=== PATIENT | female | born 1940 | race Hispanic/Latino ===

== ENCOUNTER 2024-09-15 08:05 | Emergency (ER) | payer BC, MEDICARE ==
[~2024-09-15] VITALS: Ht 154.9 cm; Wt 70.3 kg
--- NOTE | 2024-09-15 08:22 | ERN ---
General Chief Complaint: Chest Pain Stated Complaint: CP Time Seen by MD: 08:13 Source: patient History of Present Illness Initial Comments Patient is a 83-year-old female coming in to be evaluated for chest pressure. Patient states that one week ago she had a colonoscopy performed and felt very gassy afterwards. She states he started drinking some soft drink to help her with the gassiness she states that the in his improved but not completely subsided. This morning while walking his dog she felt the pressure below for chest increased radiating upper chest. She has a history of carotid stenosis. Allergies: Coded Allergies: Influenza Virus Vaccines (Unverified Allergy, Unknown, 09/15/24) Sulfa (Sulfonamide Antibiotics) (Unverified Allergy, Unknown, 09/15/24) HIVES Tetracyclines (Unverified Allergy, Unknown, 09/15/24) HIVES aspirin (Unverified Allergy, Unknown, 09/15/24) HIVES codeine (Unverified Allergy, Unknown, 09/15/24) CHEST PAIN doxycycline (Unverified Allergy, Unknown, 09/15/24) FEVER Past Medical History Past Medical History: Cancer, Heart Disease, Hypertension Medical History Other: GI BLEED Past Surgical History: Hysterectomy Surgical History Other: COLONOSCOPY ROS Dictation CONSTITUTIONAL: No chills, no fever, no weakness, no diaphoresis, no malaise. HEAD/FACE: No signs of trauma. EENT: No eye pain, no blurred vision, no tearing, no double vision, no ear pain, no ear discharge, no nose pain, no nasal congestion, no throat pain, no throat swelling, no mouth pain. RESPIRATORY: No cough, no orthopnea, no SOB, no stridor, no wheezing. CARDIOVASCULAR: chest pain, no edema, no palpitations, no syncope. GASTROINTESTINAL/ABDOMINAL: No abdominal pain, no constipation, no diarrhea, no nausea, no vomiting. GENITOURINARY: No abnormal discharge, no dysuria, no frequent urination, no hematuria. No complaints of pain in the genitals. MUSCULOSKELETAL: No back pain, no gout, no joint pain, no joint swelling, no muscle pain, no muscle stiffness, no neck pain. INTEGUMENTARY: No change in color, no change in hair/nails, no dryness, no lesion, no lumps, no rash. NEUROLOGICAL/PSYCH: No anxiety, not depressed, no emotional problem, no headache, no numbness, no pre-existing deficit, no history of seizures, no tremors, no weakness. HEMATOLOGIC/LYMPHATIC: Not anemic, no history of blood clots, no apparent bleeding, no bruising, glands not swollen. All Systems Negative, Except as Noted. Physical Exam Physical Exam Dictation VITAL SIGNS: Reviewed. GENERAL APPEARANCE: Alert, oriented x3, no acute distress, obese. HEAD AND FACE: Non-traumatic. EYES: PERRL, pink conjunctivas, eyelid no trauma, anterior chamber clear. EARS: Pinnas intact and no signs of trauma or erythema. Ear canals clear and no discharge. TMs no erythema. NOSE: No discharge, no bleeding. OROPHARYNX: Mouth normal, teeth no caries, tongue pink. Pharynx clear, no erythema. Tonsils no exudates, no abscesses noted. Mucous membrane moist. NECK: Supple, non-tender, no thyromegaly, no masses, no JVD, no bruits. BREAST: Deferred. CHEST: No tenderness, no crepitus, no paradoxical movement, no retractions. LUNGS: Clear, well-ventilated, symmetric, no rales, no wheezing, no rhonchi, no stridor, good breath sounds bilaterally. HEART: Regular rate, regular rhythm, no murmur, no gallops. VASCULAR: No peripheral edema. ABDOMEN: Soft, positive bowel sounds, nondistended, no guarding, nontender, no rebound, no masses no hepatomegaly, no splenomegaly, no Nieves's sign, no hernias. RECTAL: Deferred. GENITAL: Deferred. NEUROLOGICAL: Normal speech, gross motor function intact, gross sensory function intact. MUSCULOSKELETAL: Neck nontender, full range of motion, back nontender, full range of motion. EXTREMITIES: Nontender, full range of motion. SKIN: Color pink, dry, no turgor, no rash, no lacerations, no abrasions, no contusions. LYMPHATICS: Deferred. Results Laboratory and Microbiology Lab and Micro Result Laboratory Tests Test 09/15/24 08:25 09/15/24 08:51 White Blood Count 7.4 K/uL (4.8-10.8) Red Blood Count 4.17 MIL/uL (4.00-5.50) Hemoglobin 12.8 g/dL (12.0-16.0) Hematocrit 38.1 % (36-48) Mean Corpuscular Volume 91.4 fL (79-99) Mean Corpuscular Hemoglobin 30.7 pg (27.0-33.0) Mean Corpuscular Hemoglobin Concent 33.6 g/dL (32.0-36.0) Red Cell Distribution Width 14.1 % (11.0-15.5) Platelet Count 252 K/uL (130-400) Mean Platelet Volume 10.2 fL (7.5-10.5) Immature Granulocyte % (Auto) 0.4 % (0-1) Neutrophils (%) (Auto) 60.4 % (40.0-77.0) Lymphocytes (%) (Auto) 26.9 % (21.0-51.0) Monocytes (%) (Auto) 8.9 % (3.0-13.0) Eosinophils (%) (Auto) 3.1 % (0.0-8.0) Basophils (%) (Auto) 0.3 % (0.0-5.0) Neutrophils # (Auto) 4.5 K/uL (1.8-7.7) Lymphocytes # (Auto) 2.0 K/uL (1.0-4.8) Monocytes # (Auto) 0.7 K/uL (0.1-1.0) Eosinophils # (Auto) 0.23 K/uL (0.00-0.70) Basophils # (Auto) 0.02 K/uL (0.00-0.20) Absolute Immature Granulocyte (auto 0.03 K/uL (0-1) Nucleated Red Blood Cells 0.0 % (0.0-0.19) Sodium Level 141 mmol/L (136-145) Potassium Level 3.5 mmol/L (3.5-5.1) Chloride Level 105 mmol/L (101-111) Carbon Dioxide Level 26 mmol/L (21-32) Blood Urea Nitrogen 20 mg/dL (7-18) H Creatinine 0.8 mg/dL (0.5-1.0) Glomerular Filtration Rate Calc 72 mL/min (>90) Random Glucose 111 mg/dL (70-105) H Total Calcium 9.4 mg/dL (8.5-10.1) Total Creatine Kinase 169 U/L (21-232) Troponin I High Sensitivity 6 ng/L (4-50) Urine Color COLORLESS (YELLOW) Urine Appearance CLEAR (CLEAR) Urine pH 6.0 (5.0-8.0) Urine Specific [place] 1.005 (1.001-1.031) Urine Protein NEGATIVE mg/dL (NEGATIVE) Urine Glucose (UA) NEGATIVE mg/dL (NEGATIVE) Urine Ketones NEGATIVE mg/dL (NEGATIVE) Urine Occult Blood NEGATIVE (NEGATIVE) Urine Nitrate NEGATIVE (NEGATIVE) Urine Bilirubin NEGATIVE mg/dL (NEGATIVE) Urine Urobilinogen 0.2 mg/dL (0.2-1.0) Urine Leukocyte Esterase NEGATIVE Maru/uL Labs Reviewed?: Yes EKG/XRAY/US/CT/MRI EKG Comment 09/15/2024 time 8:12 a.m. Ventricular rate 74 Sinus rhythm [place] [address] wave elevation or depression Right bundle-branch block X-RAY Comment [place] [id number] [place] [id number] IMAGING REPORT Signed PATIENT: JEM MAHMOOD MR#: [id number] : 1940 SEX: F AGE: 83 LOCATION: [facility] ORDER 5 STATUS: [facility] ER REPORT#: [id number] SERVICE 4 REASON: cp ORDERING PHYSICIAN: JENNIFER HOLBROOK MD PROCEDURE: CXR1VW - CHEST 1VW CHEST 1VW HISTORY: Chest pain COMPARISON: None FINDINGS: A frontal projection of the chest was obtained. No acute pulmonary infiltrates is seen. The heart is normal in size. Degenerative changes are seen. Prominent interstitial markings are seen. No evidence of aortic calcification is seen. IMPRESSION: 1. No acute pulmonary infiltrate is seen. DICTATED BY: LESVIA ALAS MD DATE: 09/15/24926 ELECTRONICALLY SIGNED BY: LESVIA ALAS MD DATE: 09/15/24930 [facility] MDM: Differential diagnosis:, gastritis, NSTEMI, STEMI Rationale: Tests considered and ordered secondary to shared decision making include: Previous outside records reviewed: Old ER visits. Risk of complication and/or morbidity or mortality of patient management: None Medications-Per medication reconciliation Need for hospitalization: Patient does not meet criteria for hospitalization. Patient is a 83-year-old female coming in to be evaluated for epigastric discomfort. Laboratory workup within normal limits. Patient received a GI cocktail and IV Protonix states he feels much better. We will be discharged in stable condition. Medication will be provided for symptomatic relief. ED Course Orders Procedure Category Date Status Time Cbc With Differential LAB 09/15/24 Complete 08:15 Chest 1vw RAD 09/15/24 Resulted 08:15 12 Lead Ekg Tracing- EKG 09/15/24 Logged Technical 08:15 Creatine Kinase, Total LAB 09/15/24 Complete 08:15 Troponin I High LAB 09/15/24 Complete Sensitivity 08:15 Urinalysis Profile LAB 09/15/24 Complete 08:15 Basic Metabolic Panel LAB 09/15/24 Complete 08:15 Pantoprazole 40mg Inj PHA 09/15/24 Complete (Protonix 40mg Inj 08:30 Ondansetron 4mg Inj PHA 09/15/24 Complete (Zofran 4mg Inj) 08:30 Lidocaine Hcl 2% PHA 09/15/24 Complete Viscous (Lidocaine Hcl 08:30 Mag/Alum/Simeth 30ml PHA 09/15/24 Complete (Maalox Plus 30ml) 08:30 Current Medications Medications (Trade) Dose Ordered Sig/Chyna Route PRN Reason Start Time Stop Time Status Last Admin Dose Admin Al Hydroxide/Mg Hydroxide (MAALox PLUS 30ML) 30 ml ONCE ONCE PO 09/15/24 08:30 09/15/24 09:07 DC 09/15/24 09:12 Lidocaine HCl (Lidocaine HCl 2% Viscous) 10 ml ONCE ONCE PO 09/15/24 08:30 09/15/24 09:07 DC 09/15/24 09:12 Ondansetron HCl (zoFRAN 4MG INJ) 4 mg ONCE ONCE IVP 09/15/24 08:30 09/15/24 09:07 DC 09/15/24 09:12 Pantoprazole Sodium (PROTonix 40MG INJ) 40 mg ONCE ONCE IVP 09/15/24 08:30 09/15/24 09:07 DC 09/15/24 09:12 Vital Signs Date Time Temp Pulse Resp B/P (MAP) Pulse Ox O2 Delivery O2 Flow Rate FiO2 09/15/24 08:07 97.9 68 18 155/50 97 Room Air 0 DX & DISP Disposition: Discharge Departure Impression: Primary Impression: Gastritis Additional Impression: GERD (gastroesophageal reflux disease) Condition: Stable Scripts Lactobacillus Acidophilus (Acidophilus Probiotic) 500 Million Cell Capsule 1 CAP PO DAILY for 30 Days, #30 CAP 0 Refills Prov: JENNIFER HOLBROOK MD 09/15/24 Pantoprazole Sodium (Protonix) 40 Mg Ectab 1 TAB PO DAILY for 30 Days, #30 TAB 0 Refills Prov: JENNIFER HOLBROOK MD 09/15/24 Additional Instructions: You have been reviewed in the emergency department at [facility] after presenting with chest pain. After considering your history, your risk factors, your EKG and your blood test troponins, have been found to be at very low risk less than (1 in 100) of having a major adverse cardiac event (like he art attack) in the near future. In the " low risk" group, the risks of doing further tests and treatment as the inpatient outweighs the benefits. In many patients in the low risk group for the test of any sort or unnecessary, however he should discuss this further with his general practitioner who will understand the medical and personal backgrounds better. Because we have never declared you" no risk" we would suggest. 1 returning for medical review if you have further episodes of chest pain/arm pain or other concerning symptoms like dizziness, collapse, palpitations or shortness of breath. 2. Following up with your local doctor who will consider the need for further testing and will also ensure that any modifiable risk factors you may have for heart disease are optimally managed. Patient will be discharged in stable condition at the moment discharge patient states , no chest pain Referrals: SELF,REFERRAL (PCP) ANIA ROWE MD Time of Disposition: 10:08 JENNIFER HOLBROOK MD Sep 15, 2024 08:22
[2024-09-15 08:29] LABS: BASOPHILS # (AUTO) 0.02 K/uL (0.00-0.20); BASOPHILS % (AUTO) 0.3 % (0.0-5.0); EOSINOPHILS # (AUTO) 0.23 K/uL (0.00-0.70); EOSINOPHILS % (AUTO) 3.1 % (0.0-8.0); HEMATOCRIT 38.1 % (36-48); IMMATURE GRANULOCYTE ABSOLUTE 0.03 K/uL (0-1); LYMPHOCYTES % (AUTO) 26.9 % (21.0-51.0); MEAN CORPUSCULAR HEMOGLOBIN 30.7 pg (27.0-33.0); MEAN CORPUSCULAR HGB CONC 33.6 g/dL (32.0-36.0); MEAN CORPUSCULAR VOLUME 91.4 fL (79-99); MONOCYTES # (AUTO) 0.7 K/uL (0.1-1.0); MONOCYTES % (AUTO) 8.9 % (3.0-13.0); NEUTROPHILS # (AUTO) 4.5 K/uL (1.8-7.7); NEUTROPHILS % (AUTO) 60.4 % (40.0-77.0); PLATELET COUNT (AUTO) 252 K/uL (130-400); RED BLOOD CELL COUNT(AUTO) 4.17 MIL/uL (4.00-5.50); RED CELL DISTRIBUTION WIDTH 14.1 % (11.0-15.5); WHITE BLOOD COUNT (AUTO) 7.4 K/uL (4.8-10.8)
[2024-09-15 08:41] LABS: CREATININE 0.8 mg/dL (0.5-1.0); POTASSIUM 3.5 mmol/L (3.5-5.1)
[2024-09-15 09:02] LABS: APPEARANCE,URINE CLEAR (CLEAR); BILIRUBIN,URINE NEGATIVE (NEGATIVE); COLOR,URINE COLORLESS (YELLOW); GLUCOSE, URINE (UA) NEGATIVE (NEGATIVE); KETONES,URINE NEGATIVE (NEGATIVE); LEUKOCYTE ESTERASE ,URINE NEGATIVE Leu/uL (NEGATIVE); NITRATE,URINE NEGATIVE (NEGATIVE); OCCULT BLOOD,URINE NEGATIVE (NEGATIVE); PROTEIN,URINE NEGATIVE (NEGATIVE); UROBILINOGEN,URINE 0.2 mg/dL (0.2-1.0)
[2024-09-15 09:04] LABS: ADD UA MICROSCOPIC NO
[2024-09-15] MEDS: MAG/ALUM/SIMETH 30 ML UDCUP PO ONE (09:12)
[2024-09-15] MEDS: PANTOPrazole 40 MG/VIAL IVP ONE (09:12)
[2024-09-15] MEDS: LIDOCAINE HCL 2% VISCOUS 15 ML UDCUP PO ONE (09:12)
[2024-09-15] MEDS: ondanSETRON 4MG INJ IVP ONE (09:12)
--- NOTE | 2024-09-15 09:31 | HMCIMG ---
CHEST 1VW HISTORY: Chest pain COMPARISON: None FINDINGS: A frontal projection of the chest was obtained. No acute pulmonary infiltrates is seen. The heart is normal in size. Degenerative changes are seen. Prominent interstitial markings are seen. No evidence of aortic calcification is seen. IMPRESSION: 1. No acute pulmonary infiltrate is seen.
[2024-09-15] MEDS ORDERED: PANT40TA55 PO (10:09)
[2024-09-15] MEDS ORDERED: LACT-356 PO (10:09)
[2024-09-15 11:22] VITALS: BP 136/45; PULSE 63; RESP 18; TEMP 98; O2SAT 95
--- NOTE | 2024-09-15 13:51 | EKG ---
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
== END 2024-09-15 12:21 | disposition home or self-care (01) ==
LOC: EDH 08:05
DX: K29.70 Gastritis, unspecified, without bleeding (principal); K21.9 Gastro-esophageal reflux disease without esophagitis; I10 Essential (primary) hypertension; Z88.1 Allergy status to other antibiotic agents; Z88.2 Allergy status to sulfonamides; Z88.5 Allergy status to narcotic agent; Z88.6 Allergy status to analgesic agent; Z88.7 Allergy status to serum and vaccine; Z90.710 Acquired absence of both cervix and uterus
CPT/HCPCS: 99284; 96374; 71045; 96375; 82550; 84484; 80048; 85025; 81003; 36415; 93005; J2405; J2470